=== PATIENT | female | born 1985 | race Caucasian/White ===

== ENCOUNTER → 2019-07-28 | Outpatient (CLI) | payer MEDICAID ==
--- NOTE | 2019-07-28 16:41 | KCIC ---
Examination: THYROID ULTRASOUND History: Thyroid nodules Comparison/Correlation: None Findings: Right thyroid lobe measures 5.3 cm x 1.92 a 1.5 cm. Left-sided lobe measures 4.1 cm x 1 cm x 1.9 cm. Thyroid isthmus measures up to 0.23 cm. At the right thyroid lobe upper to interpolar region, there is a 0.6 cm x 0.6 cm x 0.4 superior solid heterogeneous well-circumscribed mildly hypoechoic nodule without significant flow. A more inferiorly located 0.60 x 0.6 cm x 0.5 cm hypoechoic nonvascular nodule is present with slightly irregular margins. No left thyroid nodule identified. Multiple lymph nodes incidentally are evident with the largest in the left submandibular region measuring up to 2.7 x 1 cm x 0.8 cm. Impression: Indeterminate right thyroid lobe nodule. One-year follow-up to assess stability recommended. Lymph nodes present are likely reactive. Correlate with plain follow-up. Electronically signed by: Kyle Link MD (07/28/2019 4:39 PM) [facility]
== END | disposition home or self-care (01) ==
LOC: KCIC US 14:52
PROVIDERS: ATTEND Advanced Practice Midwife
DX: E04.2 Nontoxic multinodular goiter (principal)
CPT/HCPCS: 76536